=== PATIENT | female | born 1960 | race Caucasian/White ===

== ENCOUNTER 2023-08-14 08:28 | Observation (INO) ==
[~2023-08-14 08:28] MED LIST: Metoclopramide 5 MG/ML VIAL (10 mg) IV PRN; NS 0.45% 1000 ml BAG 1,000 ML IV SCH; Naloxone 0.4 mg VIAL 0.4 mg/ml 1 ml VIAL IV PRN; Ondansetron 4 mg VIAL 2 MG/ML 2 ml VIAL IV PRN; fentaNYL 100 mcg/2 ml 50 MCG/ML VIAL IV PRN
[2023-08-14] MEDS ORDERED: Propofol 10 MG/ML 20 ML BTL ONE ×2 (08:39→13:34)
[2023-08-14] MEDS ORDERED: Lidocaine 2% PF 5 ML VIAL ONE (08:39)
[2023-08-14] MEDS ORDERED: Midazolam 2 mg/2 ml VIAL 1 mg/ml 2 ml VIAL (2 mg) ONE (08:39)
[2023-08-14] MEDS ORDERED: fentaNYL 100 mcg/2 ml 50 MCG/ML VIAL ONE (08:39)
[2023-08-14] MEDS ORDERED: Tranexamic Acid 1 GM/100ML BAG 2,000 MG/200 ML BAG IV ONE (08:47)
[2023-08-14] MEDS ORDERED: Clindamycin 900 MG/50 **NS BAG 900 MG/50 ML BAG ONE (08:47)
[2023-08-14] MEDS: Lactated Ringers 1000 ml BAG 1,000 ML IV SCH ×2 (09:16→17:31)
[2023-08-14 09:18] LABS: Rapid COVID-19 Molecular Undetected (Undetected)
[2023-08-14] MEDS ORDERED: ROPIVACAINE 5 MG/ML 30 ML BTL (0.5%) ONE (10:45)
[2023-08-14] MEDS ORDERED: Ondansetron 4 mg VIAL 2 MG/ML 2 ml VIAL ONE (12:55)
[2023-08-14] MEDS ORDERED: Morphine 2 MG/ML SYRINGE IV PRN (13:52)
[2023-08-14] MEDS ORDERED: Lactulose 30 ml UDC PO PRN (13:52)
[2023-08-14] MEDS ORDERED: Ondansetron 4 mg VIAL 2 MG/ML 2 ml VIAL IV PRN (13:52)
[2023-08-14] MEDS ORDERED: Magnesium Hydroxide LIQ 30 ML UDC PO PRN (13:52)
[2023-08-14] MEDS ORDERED: Ondansetron ODT 4 mg TAB 4 MG TAB PO PRN (13:52)
[2023-08-14] MEDS ORDERED: Albuterol HFA INHALER 8 gm MDI INH PRN (16:46)
[2023-08-14] MEDS: Acetaminophen IV 1 GM/100ML 1,000 MG/100 ML BAG IV ONE (17:30)
[2023-08-14] MEDS: Buffered Lidocaine 1% SYRIN 1 ml INTRADERM ONE (17:30)
[2023-08-14] MEDS: Scopolamine 1 mg/72hr PATCH TRANSDERM ONE (17:30)
[2023-08-14] MEDS: DULoxetine DR 20 mg CAP PO SCH (21:14)
[2023-08-14] MEDS: Magnesium Hydroxide LIQ 30 ML UDC PO SCH (21:15)
[2023-08-14] MEDS: Clindamycin 600 MG/D5W BAG 600 MG/50 ML BAG IV SCH (22:04)
[2023-08-15 06:09] LABS: Hemoglobin 10.5 g/dL (11.5-14.3); Mean Platelet Volume 7.2 fL (7.5-11.2); Platelet Count 169 10^3/uL (150-450)
[2023-08-15 06:45] LABS: Calcium 8.3 mg/dL (8.6-10.3); Creatinine, Serum 0.79 mg/dL (0.51-0.95); Potassium 3.7 mmol/L (3.5-5.0); eGFR CKD-EPI 84.5 (>60)
[2023-08-15] MEDS: Vitamin THERAPEUTIC TAB PO SCH (08:16)
[2023-08-15 10:10] VITALS: BP 103/60
== END 2023-08-15 14:05 | disposition home or self-care (01) ==
LOC: OR 08:28 → SSU 08:28
PROVIDERS: ADMIT Orthopaedic Surgery Adult Reconstructive Orthopaedic Surgery; ATTEND Orthopaedic Surgery Adult Reconstructive Orthopaedic Surgery